=== PATIENT | female | born 1970 | race Caucasian/White ===

== ENCOUNTER → 2016-11-21 | Outpatient (CLI) | payer OTHER | END | disposition home or self-care (01) | LOC: LAB.O 16:17 | PROVIDERS: ATTEND Family Medicine | DX: M79.1 Myalgia (principal); M25.50 Pain in unspecified joint; R53.82 Chronic fatigue, unspecified; E05.90 Thyrotoxicosis, unspecified without thyrotoxic crisis or storm; R30.0 Dysuria ==

== ENCOUNTER → 2016-12-04 | Outpatient (CLI) | payer OTHER ==
--- NOTE | 2016-12-04 09:33 | MRI ---
EXAM DESCRIPTION: Lumbar Spine w/o Contrast CLINICAL HISTORY: RADICULOPATHY right-sided back pain radiating into the right lower extremity COMPARISON: None Available. TECHNIQUE: MRI of the lumbar spine is performed according to our usual protocol with axial and sagittal multi sequence imaging. FINDINGS: Normal alignment of the vertebral column with preservation of vertebral and disc height without abnormal marrow signal intensity is noted. The retroperitoneal and paraspinous structures are normal. The conus is positioned at the L1 level without intradural or intramedullary abnormalities. Tiniest amount of curvature of the spine convex to the right is present on coronal imaging. L1-2: the disc is well hydrated. There is no loss of height. There is no bulging. The facets are unremarkable with no significant hypertrophy. There is no stenosis or impingement. L2-3: the disc is well hydrated. There is no loss of height. There is no bulging. The facets are unremarkable with no significant hypertrophy. There is no stenosis or impingement. L3-4: the disc is well hydrated. There is no loss of height. There is no bulging. The facets are unremarkable with no significant hypertrophy. There is no stenosis or impingement. L4-5: the disc is well hydrated. There is no loss of height. There is no bulging. The facets are unremarkable with no significant hypertrophy. There is no stenosis or impingement. L5-S1: the disc is well hydrated. There is no loss of height. There is no bulging. The facets are unremarkable with no significant hypertrophy. There is no stenosis or impingement. IMPRESSION: Normal MRI of the lumbar spine without significant disc bulge or herniation or stenosis. Electronically signed by: Tuan Rosario MD 12/04/2016 9:31 AM CDT
== END | disposition home or self-care (01) ==
LOC: MRI 07:47
PROVIDERS: ATTEND Family Medicine
DX: M54.16 Radiculopathy, lumbar region (principal); E23.7 Disorder of pituitary gland, unspecified; N95.1 Menopausal and female climacteric states

== ENCOUNTER → 2018-03-05 | Outpatient (CLI) | payer OTHER ==
--- NOTE | 2018-03-08 07:54 | MRI ---
EXAM DESCRIPTION: MRI left knee CLINICAL HISTORY: Left knee pain and swelling COMPARISON: None. TECHNIQUE: Multiplanar, multisequence MR images of the left knee FINDINGS: Tear of the anterior horn lateral meniscus with horizontal tear from the periphery to the superior articular surface from the mid body through the anterior horn extending down to the tibial root attachment. Associated parameniscal cyst in the anterior joint measuring 2.6 cm transverse by 1.4 x 1.2 cm. No lateral femorotibial chondrosis. Small joint line osteophyte anteriorly Medial meniscus is normal. No high-grade chondrosis or chronic osteochondral lesion medial femorotibial Patellar cartilage intact. 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 Minimal subchondral cortical irregularity and edema ACL, PCL, MCL and fibular collateral ligaments are intact Biceps femoris, popliteus and iliotibial band tendons are normal. Proximal medial patellar tendinosis with surrounding mild soft tissue edema Small joint effusion. Thin medial patellar plica. 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
== END ==
LOC: MRI 13:51
PROVIDERS: ATTEND Nurse Practitioner Family
DX: S83.281A Other tear of lateral meniscus, current injury, right knee, initial encounter (principal)